=== PATIENT | female | born 1935 | race Caucasian/White ===

== ENCOUNTER 2021-07-24 12:25 | Inpatient (IN) | payer MEDICARE, OTHER ==
[~2021-07-24] VITALS: Ht 160 cm; Wt 87.2 kg
[2021-07-24] MEDS ORDERED: MORPHINE SULFATE 4 MG/ML SYR/VIAL IV ONE (12:45)
[2021-07-24] MEDS ORDERED: ONDANSETRON HCL 4 MG/2 ML VIAL IV ONE (12:45)
[2021-07-24] MEDS ORDERED: ASPirin 81 mg TAB PO ONE (12:45)
[2021-07-24 13:19] LABS: Basophils # (auto) 0.1 10 ^3/uL (0-0.2); Basophils % (auto) 0.8 % (0.0-2.0); Eosinophils # (auto) 0 10 ^3/uL (0-0.8); Eosinophils % (auto) 0.5 % (0.0-7.0); Hematocrit 35.7 % (36.0-46.0); Hemoglobin 12.1 g/dL (12.2-16.2); Lymphocytes # (auto) 1.2 10 ^3/uL (0.4-5.4); Mean Corpuscular Hemoglobin 31.2 pg (28.0-32.0); Mean Corpuscular Volume 91.9 fL (80.0-100.0); Monocytes # (auto) 0.8 10 ^3/uL (0-1.3); Monocytes % (auto) 10.7 % (0.0-12.0); Neutrophils # (auto) 5.5 10 ^3/uL (1.6-8.6); Red Blood Cells 3.88 10^6/uL (4.0-5.20); Red Cell Distribution Width 13.4 % (11.8-14.3); White Blood Cell 7.6 10^3/uL (4.4-10.8)
[2021-07-24 13:39] LABS: Anion Gap 9 (5-15); Blood Urea Nitrogen 15 mg/dL (7-18); Carbon Dioxide 24 mmol/L (21-32); Chloride 103 mmol/L (98-107); Glucose 121 mg/dL (74-106); Potassium 3.8 mmol/L (3.5-5.1); Sodium 136 mmol/L (136-145)
[2021-07-24 13:40] LABS: Alanine Aminotransferase 23 U/L (13-56); Albumin 2.6 g/dL (3.4-5.0); Aspartate Aminotransferase 18 U/L (15-37); BUN/Creatinine Ratio 17.6; Calcium 8.9 mg/dL (8.5-10.1); GFR African American 82 mL/min; GFR Non-African American 67 mL/min; Magnesium 1.9 mg/dL (1.6-2.6)
[2021-07-24 13:44] LABS: Alkaline Phosphatase 105 U/L (45-117); Bilirubin, Total 0.5 mg/dL (0.2-1.0); Total Protein 7.4 g/dL (6.4-8.2)
[2021-07-24] MEDS ORDERED: IOHEXOL 350 MG/ML 100ML IJ ONE (20:49)
[2021-07-24] MEDS ORDERED: MORPHINE SULFATE INJECTION 2 MG/ML SYRG IV PRN (23:00)
[2021-07-24] MEDS ORDERED: NITROGLYCERIN 0.4 MG SL TAB SL PRN (23:00)
[2021-07-24] MEDS ORDERED: ACETAMINOPHEN 325 MG TAB PO PRN (23:00)
[2021-07-24] MEDS ORDERED: ONDANSETRON HCL 4 MG/2 ML VIAL IV PRN (23:00)
[2021-07-25] MEDS ORDERED: cloNIDine HCL 0.1 MG TAB PO ONE (01:15)
[2021-07-25] MEDS ORDERED: LABETALOL HCL 5 MG/ML 4ML SYRINGE IV ONE (06:00)
[2021-07-25 07:19] LABS: Hematocrit 33.6 % (36.0-46.0); Hemoglobin 11.6 g/dL (12.2-16.2); Mean Corpuscular Hemoglobin 31.9 pg (28.0-32.0); Mean Corpuscular Hgb Conc. 34.5 g/dL (32.0-36.0); Mean Corpuscular Volume 92.4 fL (80.0-100.0); Red Blood Cells 3.64 10^6/uL (4.0-5.20); Red Cell Distribution Width 13.4 % (11.8-14.3); White Blood Cell 11.8 10^3/uL (4.4-10.8)
[2021-07-25 07:24] LABS: Band Neutrophils % (manual) 0; Basophils % (manual) 0 (0.0-2.0); Blast Cells 0; Eosinophils % (manual) 0 (0-7); Metamyelocytes % 0; Promyelocytes % 0; Reactive Lymphocytes 0
[2021-07-25 08:20] LABS: Lymphocytes % (manual) 15 (10.0-50.0); Monocytes % (manual) 16 (0-12); Myelocytes % 1
[2021-07-25] MEDS: LEVOTHYROXINE SODIUM 100 MCG TAB PO SCH (10:00)
[2021-07-25] MEDS: ASPirin 81 mg TAB PO SCH (11:43)
[2021-07-25] MEDS: METOPROLOL TARTRATE 50 MG TAB PO SCH ×2 (11:43→22:26)
[2021-07-25] MEDS: amLODIPine BESYLATE 5 MG TAB PO SCH (11:44)
[2021-07-25] MEDS: ENOXAPARIN SOD 40 MG/0.4 ML SYRINGE SC SCH (11:45)
[2021-07-25] MEDS: PANTOPRAZOLE 40 MG TAB PO SCH (11:45)
[2021-07-25 13:03] LABS: Cholesterol 169 mg/dL (< 200); Triglycerides 132 mg/dL (< 150)
[2021-07-25 13:06] LABS: HDL Cholesterol 53 mg/dL (40-59); LDL Cholesterol 98 mg/dL (< 100)
[2021-07-25 15:47] VITALS: BP 148/61
[2021-07-25 17:41] VITALS: BP 148/61
[2021-07-25] MEDS: ATORVASTATIN 20 MG TAB PO SCH (21:58)
[2021-07-25 22:00] VITALS: BP 138/67
[2021-07-26 05:00] VITALS: BP 152/71
[2021-07-26] MEDS: LEVOTHYROXINE SODIUM 100 MCG TAB PO SCH (06:11)
[2021-07-26] MEDS: METOPROLOL TARTRATE 50 MG TAB PO SCH ×2 (06:57→22:15)
[2021-07-26] MEDS: amLODIPine BESYLATE 5 MG TAB PO SCH (06:58)
[2021-07-26 09:17] VITALS: BP 158/68
[2021-07-26] MEDS: PANTOPRAZOLE 40 MG TAB PO SCH (09:45)
[2021-07-26] MEDS: ENOXAPARIN SOD 40 MG/0.4 ML SYRINGE SC SCH (09:46)
[2021-07-26] MEDS: ASPirin 81 mg TAB PO SCH (09:46)
[2021-07-26 13:00] VITALS: BP 139/61
[2021-07-26 17:00] VITALS: BP 135/68
[2021-07-26 22:00] VITALS: BP 151/57
[2021-07-26] MEDS: ATORVASTATIN 20 MG TAB PO SCH (22:00)
[2021-07-27] MEDS: cloNIDine HCL 0.1 MG TAB PO PRN (00:41)
[2021-07-27 05:00] VITALS: BP 166/66
[2021-07-27] MEDS: LEVOTHYROXINE SODIUM 100 MCG TAB PO SCH (06:20)
[2021-07-27] MEDS ORDERED: ADENOSINE 72 MG in GIVE UN-DILUTED 0 ML IV STA (08:55)
[2021-07-27 09:00] VITALS: BP 153/58
[2021-07-27] MEDS: METOPROLOL TARTRATE 50 MG TAB PO SCH ×2 (10:00→21:49)
[2021-07-27] MEDS: ASPirin 81 mg TAB PO SCH (10:00)
[2021-07-27] MEDS: amLODIPine BESYLATE 5 MG TAB PO SCH (10:00)
[2021-07-27] MEDS: ENOXAPARIN SOD 40 MG/0.4 ML SYRINGE SC SCH (10:00)
[2021-07-27] MEDS: PANTOPRAZOLE 40 MG TAB PO SCH (10:00)
[2021-07-27 10:22] VITALS: BP 149/56
[2021-07-27 13:00] VITALS: BP 131/55
[2021-07-27 17:00] VITALS: BP 150/61
[2021-07-27] MEDS: ATORVASTATIN 20 MG TAB PO SCH ×2 (21:49→22:00)
[2021-07-27 22:00] VITALS: BP 127/55
[2021-07-28 05:00] VITALS: BP 173/73
[2021-07-28] MEDS: LEVOTHYROXINE SODIUM 100 MCG TAB PO SCH (06:17)
[2021-07-28] MEDS: cloNIDine HCL 0.1 MG TAB PO PRN (06:31)
[2021-07-28 08:00] VITALS: BP 149/55
[2021-07-28] MEDS: ENOXAPARIN SOD 40 MG/0.4 ML SYRINGE SC SCH (09:18)
[2021-07-28] MEDS: ASPirin 81 mg TAB PO SCH (09:18)
[2021-07-28] MEDS: amLODIPine BESYLATE 5 MG TAB PO SCH (09:19)
[2021-07-28] MEDS: PANTOPRAZOLE 40 MG TAB PO SCH (09:19)
[2021-07-28] MEDS: METOPROLOL TARTRATE 50 MG TAB PO SCH (09:20)
[2021-07-28] MEDS ORDERED: TEMA30CA PO (11:55)
[2021-07-28] MEDS ORDERED: MET50T GT (11:55)
[2021-07-28] MEDS ORDERED: FLUO60TA7 PO (11:55)
[2021-07-28] MEDS ORDERED: EZET10TA22 PO (11:55)
[2021-07-28] MEDS ORDERED: AMLO-489 PO (11:55)
[2021-07-28] MEDS ORDERED: LEV100T PO (11:55)
[2021-07-28] MEDS ORDERED: LANS30CA57 PO (11:55)
[2021-07-28 13:26] VITALS: BP 159/55
== END 2021-07-28 14:20 | disposition home or self-care (01) | DRG 304 ==
LOC: EDBD 12:25 → ER 12:25 → TELE 23:01 → TELE-WESTW 07-25 15:52
PROVIDERS: ADMIT Nurse Practitioner; ATTEND Family Medicine
DX: I16.9 Hypertensive crisis, unspecified (principal); E43 Unspecified severe protein-calorie malnutrition; E03.9 Hypothyroidism, unspecified; Z20.822 Contact with and (suspected) exposure to COVID-19; I10 Essential (primary) hypertension; D64.9 Anemia, unspecified; E78.00 Pure hypercholesterolemia, unspecified; N26.1 Atrophy of kidney (terminal); E78.5 Hyperlipidemia, unspecified; Z74.01 Bed confinement status; Z95.810 Presence of automatic (implantable) cardiac defibrillator; Z79.899 Other long term (current) drug therapy; Z90.710 Acquired absence of both cervix and uterus; Z90.49 Acquired absence of other specified parts of digestive tract; Z98.42 Cataract extraction status, left eye; Z98.41 Cataract extraction status, right eye; Z88.2 Allergy status to sulfonamides; Z88.6 Allergy status to analgesic agent; Z88.0 Allergy status to penicillin; Z88.8 Allergy status to other drugs, medicaments and biological substances
CPT/HCPCS: 36415; 71045; 71275; 78452; 80053; 80061; 83735; 83880; 84484; 85007; 85025; 85027; 85379; 87426; 93005; 93017; 93306; 93970; 96374; G0378; J0153; J3490

== ENCOUNTER → 2021-08-25 | Outpatient (CLI) | payer OTHER ==
[~2021-08-25] MED LIST: AMLO-489 PO; EZET10TA22 PO; FLUO60TA7 PO; LANS30CA57 PO; LEV100T PO; MET50T GT; TEMA30CA PO
== END | disposition home or self-care (01) ==
LOC: Rad HDHVI 12:59
PROVIDERS: ATTEND Internal Medicine Cardiovascular Disease
DX: I35.1 Nonrheumatic aortic (valve) insufficiency (principal); I11.9 Hypertensive heart disease without heart failure; I20.9 Angina pectoris, unspecified
CPT/HCPCS: 93306

== ENCOUNTER → 2022-06-21 | Outpatient (CLI) | payer OTHER | END | disposition home or self-care (01) | LOC: Rad HDHVI 09:56 | PROVIDERS: ATTEND Internal Medicine Cardiovascular Disease | DX: I08.8 Other rheumatic multiple valve diseases (principal); R00.2 Palpitations; I10 Essential (primary) hypertension | CPT/HCPCS: 93306 ==

== ENCOUNTER 2022-10-09 10:50 | Inpatient (IN) | payer OTHER ==
[~2022-10-09] VITALS: Ht 162.6 cm; Wt 85.0 kg
[2022-10-09 12:08] LABS: Basophils # (auto) 0.1 10 ^3/uL (0-0.2); Basophils % (auto) 0.8 % (0.0-2.0); Eosinophils # (auto) 0 10 ^3/uL (0-0.8); Hematocrit 37.3 % (36.0-46.0); Hemoglobin 12.6 g/dL (12.2-16.2); Lymphocytes # (auto) 0.6 10 ^3/uL (0.4-5.4); Lymphocytes % (auto) 6.9 % (10.0-50.0); Mean Corpuscular Hemoglobin 32.5 pg (28.0-32.0); Mean Corpuscular Hgb Conc. 33.6 g/dL (32.0-36.0); Mean Corpuscular Volume 96.7 fL (80.0-100.0); Monocytes # (auto) 0.6 10 ^3/uL (0-1.3); Monocytes % (auto) 7.1 % (0.0-12.0); Neutrophils # (auto) 7.5 10 ^3/uL (1.6-8.6); Neutrophils % (auto) 85.2 % (37.0-80.0); Red Blood Cells 3.86 10^6/uL (4.0-5.20); Red Cell Distribution Width 14.7 % (11.8-14.3); White Blood Cell 8.8 10^3/uL (4.4-10.8)
[2022-10-09 12:21] LABS: INR 1.13 (0.9-1.15); Partial Thromboplastin Time 20.1 sec (24.6-33.4)
[2022-10-09 12:29] LABS: Albumin 3.4 g/dL (3.4-5.0); Calcium 9.2 mg/dL (8.5-10.1); Magnesium 2.4 mg/dL (1.6-2.6); Potassium 4.1 mmol/L (3.5-5.1)
[2022-10-09 12:35] LABS: BUN/Creatinine Ratio 18.8; Bilirubin, Total 0.9 mg/dL (0.2-1.0); Total Protein 6.7 g/dL (6.4-8.2)
[2022-10-09] MEDS ORDERED: METOPROLOL TARTRATE 25 MG TAB PO ONE (12:45)
[2022-10-09] MEDS ORDERED: ASPirin 325 MG TAB PO ONE (13:00)
[2022-10-09] MEDS ORDERED: MORPHINE SULFATE 4 MG/ML SYR/VIAL IV ONE (14:30)
[2022-10-09] MEDS ORDERED: LABETALOL HCL 5 MG/ML 4ML SYRINGE IV ONE (14:30)
[2022-10-09] MEDS ORDERED: LABETALOL INJECTION 250 MG in SODIUM CHL 0.9% 200 ML IV ONE (15:45)
[2022-10-09] MEDS ORDERED: HEPARIN SODIUM (PORCINE) 5000 UNITS/ML 1ML VIAL IV ONE (15:45)
[2022-10-09] MEDS ORDERED: HEPARIN DRIP/D5W 100UNITS/ML 250 ML IV SCH (15:45)
[2022-10-09] MEDS ORDERED: NITROGLYCERIN 0.4 MG SL TAB SL PRN (21:00)
[2022-10-09] MEDS ORDERED: MORPHINE SULFATE INJ 2 MG/ml SYRG IV PRN (21:00)
[2022-10-09] MEDS ORDERED: ONDANSETRON HCL 4 MG/2 ML VIAL IV PRN (21:00)
[2022-10-09] MEDS ORDERED: hydrALAZINE HCL 20 MG/ML VL IV PRN (21:00)
[2022-10-09] MEDS: ATORVASTATIN 20 MG TAB PO SCH (22:09)
[2022-10-09 22:35] LABS: INR 1.24 (0.9-1.15); Partial Thromboplastin Time 54.5 sec (24.6-33.4)
[2022-10-10 04:55] LABS: Basophils # (auto) 0.1 10 ^3/uL (0-0.2); Eosinophils # (auto) 0.1 10 ^3/uL (0-0.8); Eosinophils % (auto) 0.8 % (0.0-7.0); Hematocrit 33.6 % (36.0-46.0); Hemoglobin 11.3 g/dL (12.2-16.2); Lymphocytes # (auto) 1.3 10 ^3/uL (0.4-5.4); Lymphocytes % (auto) 15.5 % (10.0-50.0); Mean Corpuscular Hemoglobin 32.2 pg (28.0-32.0); Mean Corpuscular Hgb Conc. 33.7 g/dL (32.0-36.0); Mean Corpuscular Volume 95.5 fL (80.0-100.0); Monocytes # (auto) 1.1 10 ^3/uL (0-1.3); Monocytes % (auto) 12.6 % (0.0-12.0); Neutrophils # (auto) 5.8 10 ^3/uL (1.6-8.6); Neutrophils % (auto) 70.1 % (37.0-80.0); Nucleated Red Blood Cells % 0.1 %; Red Blood Cells 3.52 10^6/uL (4.0-5.20); Red Cell Distribution Width 14.9 % (11.8-14.3); White Blood Cell 8.3 10^3/uL (4.4-10.8)
[2022-10-10] MEDS ORDERED: HEPARIN DRIP/D5W 100UNITS/ML 250 ML IV SCH (05:30)
[2022-10-10 05:38] LABS: BUN/Creatinine Ratio 25.6; Bilirubin, Total 0.9 mg/dL (0.2-1.0); Calcium 8.3 mg/dL (8.5-10.1); Potassium 3.4 mmol/L (3.5-5.1); Total Protein 6.1 g/dL (6.4-8.2)
[2022-10-10 07:36] LABS: Urine Bacteria NONE SEEN /hpf (None Seen); Urine Blood Negative /uL (Negative); Urine Mucus FEW (None Seen); Urine Specific Gravity 1.032 (1.001-1.035); Urine WBC 1 /hpf (0 - 5)
[2022-10-10] MEDS: ASPirin 81 mg TAB PO SCH (09:14)
[2022-10-10] MEDS ORDERED: POTASSIUM EFFERVESENT TAB 25 MEQ PO ONE (09:15)
[2022-10-10] MEDS ORDERED: EPOETIN ALFA-EPBX 10,000 UNIT/1ML VIAL SC ONE (09:30)
[2022-10-10 10:37] LABS: INR 1.19 (0.9-1.15); Partial Thromboplastin Time 67.5 sec (24.6-33.4)
[2022-10-10] MEDS ORDERED: hydrALAZINE HCL 20 MG/ML VL IV PRN (16:15)
[2022-10-10] MEDS: METOPROLOL TARTRATE 25 MG TAB PO SCH (17:22)
[2022-10-10] MEDS: ATORVASTATIN 20 MG TAB PO SCH (22:00)
[2022-10-10 23:40] VITALS: BP 164/71
[2022-10-11] MEDS: ATORVASTATIN 20 MG TAB PO SCH (00:16)
[2022-10-11] MEDS: METOPROLOL TARTRATE 25 MG TAB PO SCH ×2 (00:16→10:20)
[2022-10-11] MEDS ORDERED: INFLUENZA QUAD 2022-2023 0.5 ML SYRG IM ONE (01:15)
[2022-10-11] MEDS ORDERED: LANS30CA57 PO (01:27)
[2022-10-11] MEDS ORDERED: HYDR200T36 PO (01:27)
[2022-10-11] MEDS ORDERED: SACU1TAB PO (01:27)
[2022-10-11] MEDS ORDERED: CYA100I PO (01:27)
[2022-10-11 05:00] VITALS: BP 170/77
[2022-10-11 09:00] VITALS: BP 161/64
[2022-10-11] MEDS ORDERED: RAMIPRIL 2.5 MG CAP PO SCH (10:00)
[2022-10-11] MEDS: ASPirin 81 mg TAB PO SCH (10:20)
[2022-10-11] MEDS ORDERED: MET50T PO (11:18)
[2022-10-11] MEDS ORDERED: LOSA-69 PO (11:18)
[2022-10-11 13:00] VITALS: BP 170/66
== END 2022-10-11 16:00 | disposition home or self-care (01) | DRG 280 ==
LOC: ER 10:50 → EDBD 10:50 → TELE 21:05 → TELE-EAST 10-10 22:36
PROVIDERS: ADMIT Nurse Practitioner; ATTEND Nurse Practitioner Acute Care
DX: I16.9 Hypertensive crisis, unspecified (principal); I50.23 Acute on chronic systolic (congestive) heart failure; I21.A1 Myocardial infarction type 2; I24.9 Acute ischemic heart disease, unspecified; N17.9 Acute kidney failure, unspecified; I13.0 Hypertensive heart and chronic kidney disease with heart failure and stage 1 through stage 4 chronic kidney disease, or unspecified chronic kidney disease; Z20.822 Contact with and (suspected) exposure to COVID-19; N18.9 Chronic kidney disease, unspecified; I25.10 Atherosclerotic heart disease of native coronary artery without angina pectoris; E03.9 Hypothyroidism, unspecified; D64.9 Anemia, unspecified; I34.0 Nonrheumatic mitral (valve) insufficiency; E78.5 Hyperlipidemia, unspecified; E87.6 Hypokalemia; Z79.899 Other long term (current) drug therapy; Z95.810 Presence of automatic (implantable) cardiac defibrillator; Z90.710 Acquired absence of both cervix and uterus; Z95.5 Presence of coronary angioplasty implant and graft; Z88.0 Allergy status to penicillin; Z88.2 Allergy status to sulfonamides
CPT/HCPCS: 36415; 71045; 80053; 81001; 83735; 83880; 84484; 85025; 85610; 85730; 87086; 87088; 87186; 87426; 93005; 96365; 96366; 96368; 96375; 96376; 99291; G0378; J3490

== ENCOUNTER → 2022-11-14 | Outpatient (CLI) | payer OTHER ==
[~2022-11-14] MED LIST changes: +CYA100I PO; +HYDR200T36 PO; +LOSA-69 PO; +MET50T PO; +SACU1TAB PO
[2022-11-14 12:06] LABS: Basophils # (auto) 0.1 10 ^3/uL (0-0.2); Basophils % (auto) 1.1 % (0.0-2.0); Eosinophils # (auto) 0.1 10 ^3/uL (0-0.8); Eosinophils % (auto) 1.6 % (0.0-7.0); Hematocrit 38.6 % (36.0-46.0); Hemoglobin 12.2 g/dL (12.2-16.2); Lymphocytes # (auto) 1.6 10 ^3/uL (0.4-5.4); Lymphocytes % (auto) 23.6 % (10.0-50.0); Mean Corpuscular Hgb Conc. 31.7 g/dL (32.0-36.0); Mean Corpuscular Volume 94.5 fL (80.0-100.0); Monocytes # (auto) 0.7 10 ^3/uL (0-1.3); Monocytes % (auto) 10.5 % (0.0-12.0); Neutrophils # (auto) 4.2 10 ^3/uL (1.6-8.6); Neutrophils % (auto) 63.2 % (37.0-80.0); Nucleated Red Blood Cells % 0.1 %; Red Blood Cells 4.08 10^6/uL (4.0-5.20); Red Cell Distribution Width 14.6 % (11.8-14.3); White Blood Cell 6.7 10^3/uL (4.4-10.8)
[2022-11-14 12:21] LABS: Albumin 3.3 g/dL (3.4-5.0); Calcium 9.4 mg/dL (8.5-10.1); Potassium 4.1 mmol/L (3.5-5.1)
[2022-11-14 12:27] LABS: BUN/Creatinine Ratio 12.7; Bilirubin, Total 0.6 mg/dL (0.2-1.0)
[2022-11-14 14:07] LABS: Free T4 (Free Thyroxine) 1.35 ng/dL (0.89-1.76)
== END | disposition home or self-care (01) ==
LOC: LAB 09:49
PROVIDERS: ATTEND Internal Medicine Cardiovascular Disease
DX: I50.33 Acute on chronic diastolic (congestive) heart failure (principal); E55.9 Vitamin D deficiency, unspecified
CPT/HCPCS: 36415; 80053; 80061; 82306; 82607; 83036; 84439; 84443; 85025

== ENCOUNTER → 2022-11-16 | Outpatient (CLI) | payer OTHER ==
[~2022-11-16] MED LIST changes: +IOHEXOL 350 MG/ML 100ML IJ ONE
[2022-11-16 10:31] VITALS: BP 112/67
[2022-11-16 10:50] VITALS: BP 124/70
== END | disposition home or self-care (01) ==
LOC: Rad HDHVI 10:17
PROVIDERS: ATTEND Internal Medicine Cardiovascular Disease
DX: R91.1 Solitary pulmonary nodule (principal); K44.9 Diaphragmatic hernia without obstruction or gangrene; I70.0 Atherosclerosis of aorta; M41.84 Other forms of scoliosis, thoracic region
CPT/HCPCS: 71275; G0463; Q9967

== ENCOUNTER → 2022-11-23 | Outpatient (CLI) | payer OTHER ==
[~2022-11-23] MED LIST changes: -IOHEXOL 350 MG/ML 100ML IJ ONE
== END | disposition home or self-care (01) ==
LOC: Rad HDHVI 12:44
PROVIDERS: ATTEND Internal Medicine Cardiovascular Disease
DX: I08.8 Other rheumatic multiple valve diseases (principal); I10 Essential (primary) hypertension; R00.2 Palpitations
CPT/HCPCS: 93306

== ENCOUNTER → 2023-01-15 | Outpatient (CLI) | payer OTHER ==
[2023-01-15 15:00] VITALS: BP 120/78
[2023-01-15 15:30] VITALS: BP 133/50
== END | disposition home or self-care (01) ==
LOC: Rad HDHVI 14:59
PROVIDERS: ATTEND Internal Medicine Cardiovascular Disease
DX: R06.02 Shortness of breath (principal)
CPT/HCPCS: 71046; G0463

== ENCOUNTER → 2023-01-28 | Outpatient (CLI) | payer OTHER | END | disposition home or self-care (01) | LOC: Rad HDHVI 10:56 | PROVIDERS: ATTEND Internal Medicine Cardiovascular Disease | DX: I08.8 Other rheumatic multiple valve diseases (principal); I11.9 Hypertensive heart disease without heart failure; Z95.0 Presence of cardiac pacemaker | CPT/HCPCS: 93306 ==